=== PATIENT | female | born 1990 | race Two or more races ===

== ENCOUNTER 2017-05-22 23:01 | Emergency (ER) | payer OTHER ==
[~2017-05-22] VITALS: Ht 160 cm; Wt 63.5 kg
[2017-05-22 23:30] VITALS: BP 153/62
[2017-05-23 00:30] LABS: BILIRUBIN,URINE NEGATIVE (NEG); GLUCOSE,URINE 100 mg/dL (NEG); NITRITE,URINE POSITIVE (NEG); PROTEIN,URINE NEGATIVE (NEG-TRACE); UROBILINOGEN,URINE 0.2 mg/dL (0.2 mg/dL)
[2017-05-23 00:39] LABS: BACTERIA,URINE MANY /HPF (0-FEW); RBC,URINE OCC /HPF (0-2); SQUAMOUS EPITHELIAL CELL,UR MOD /LPF; WBC,URINE 20-40 /HPF (0-4)
[2017-05-23] MEDS ORDERED: IBUPROFEN 600 MG TABLET. PO ONE (00:45)
--- NOTE | 2017-05-23 05:25 | ED.ADGEN ---
Past Medical History Past Medical History: Asthma, Other Additional Past Medical Histor: seasonal allergy, chronic low back pain Past Surgical History: Alcohol Use: None Drug Use: None Adult General Chief Complaint Chief Complaint: MULTIPLE COMPLAINTS HPI HPI Patient is a 26 year old female presents with multiple medical complaints. Patient reports bilateral lower back pain,and left sided pelvic pain/burning. Denies urinary frequency urgency and dysuria. No vaginal discharge. No flank pain or history of kidney stones. No ever, chills,nausea vomiting or sweats.No other acute symptoms or complaints. Review of Systems Review of Systems ROS as per HPI. Current Medications Current Medications Current Medications Medications (Trade) Dose Ordered Sig/Autumn Start Time Stop Time Status Last Admin Dose Admin Ibuprofen (Motrin) 600 mg 1X ONCE 05/23/17 00:45 05/23/17 00:46 DC 05/23/17 00:43 600 MG Allergies Allergies Allergies Coded Allergies Type Severity Reaction Last Updated Verified No Known Drug Allergies 07/21/16 No Physical Exam Physical Exam Constitutional: Well developed, well nourished, no acute distress, non-toxic appearance. [] HENT: Normocephalic, atraumatic, bilateral external ears normal, oropharynx moist, no oral exudates, nose normal. [] Eyes: PERRLA, EOMI, conjunctiva normal, no discharge. [] Neck: Normal range of motion, no tenderness, supple, no stridor. [] Cardiovascular:Heart rate regular rhythm, no murmur [] Lungs & Thorax: Bilateral breath sounds clear to auscultation [] Abdomen: Bowel sounds normal, soft, no tenderness, no masses, no pulsatile masses.left lower quadrant/pelvic pain, no tenderness. [] Skin: Warm, dry, no erythema, no rash. [] Back: right lower lumbar paravertebral pain, no CVA tenderness. [] Extremities: No tenderness, no cyanosis, no clubbing, ROM intact, no edema. [] Neurologic: Alert and oriented X 3, normal motor function, normal sensory function, no focal deficits noted. [] Psychologic: Affect normal, judgement normal, mood normal. [] Current Patient Data Vital Signs Vital Signs Date Time Temp Pulse Resp B/P (MAP) Pulse Ox O2 Delivery O2 Flow Rate FiO2 05/22/17 23:30 97.9 102 10 153/62 (92) 97 Room Air 97.9 Lab Values Laboratory Tests Test 05/22/17 22:47 05/23/17 00:01 POC Urine HCG, Qualitative Hcg negative (Negative) Urine Collection Type Unknown Urine Color Yellow Urine Clarity Turbid Urine pH 6.0 Urine Specific [place] 1.025 Urine Protein Negative mg/dL (NEG-TRACE) Urine Glucose (UA) 100 mg/dL (NEG) Urine Ketones (Stick) Negative mg/dL (NEG) Urine Blood Negative (NEG) Urine Nitrite Positive (NEG) Urine Bilirubin Negative (NEG) Urine Urobilinogen Dipstick 0.2 mg/dL (0.2 mg/dL) Urine Leukocyte Esterase Small (NEG) Urine RBC Occ /HPF (0-2) Urine WBC 20-40 /HPF (0-4) Urine Squamous Epithelial Cells Mod /LPF Urine Bacteria Many /HPF (0-FEW) Urine Mucus Marked /LPF EKG EKG [] Radiology/Procedures Radiology/Procedures [] Course & Med Decision Making Course & Med Decision Making Pertinent Labs and Imaging studies reviewed. (See chart for details) [producible mechanical back pain with findings of urinary tract infection. Ibuprofen given. Abx prescriptions provided. Recommend PCP follow up. return precautions reviewed.] Dragon Disclaimer Dragon Disclaimer This electronic medical record was generated, in whole or in part, using a voice recognition dictation system. FADIA BLOCK DO May 23, 2017 05:25
== END 2017-05-23 00:52 | disposition home or self-care (01) ==
LOC: ER 23:01
DX: M54.5 Low back pain (principal); R10.2 Pelvic and perineal pain; G89.29 Other chronic pain; J45.909 Unspecified asthma, uncomplicated
CPT/HCPCS: 81001; 81025; 87086; 87186; 99284

== ENCOUNTER 2017-09-29 13:28 | Emergency (ER) | payer OTHER ==
[2017-09-29] MEDS ORDERED: IV NORMAL SALINE 1000ML BAG 1,000 ML IV SCH (14:13)
[2017-09-29] MEDS ORDERED: ACETAMINOPHEN 325 MG TABLET. PO ONE (14:15)
--- NOTE | 2017-09-29 14:21 | PHYS DOC ---
Past Medical History Past Medical History: Asthma, Other Additional Past Medical Histor: seasonal allergy, chronic low back pain Past Surgical History: Alcohol Use: None Drug Use: None Adult General Chief Complaint Chief Complaint: ABDOMINAL PAIN IN HPI HPI Patient is a 26 year old female who presents with complaint of left-sided flank pain. Patient states that her symptoms started last night. Patient states that the pain feels like burning and sharpness. Patient states that it radiates around towards the left side of her abdomen. Patient denies any previous history of similar symptoms. Patient has had no associated fever, nausea, vomiting, or diarrhea with her symptoms. The patient notes that she has had history of urinary tract infection but has had no recent episodes. Patient currently 19 weeks . Patient has been following with a physician and has had no noted complications with her . Patient has had an ultrasound which confirmed IUP. Patient has not taken any medications to help with her symptoms. Review of Systems Review of Systems Constitutional: Denies fever or chills [] Eyes: Denies change in visual acuity, redness, or eye pain [] HENT: Denies nasal congestion or sore throat [] Respiratory: Denies cough or shortness of breath [] Cardiovascular: Denies chest pain or edema[] GI: Left-sided upper abdominal pain, denies nausea, vomiting, bloody stools or diarrhea [] : Left flank pain, denies dysuria, vaginal bleeding, or abnormal discharge[] Musculoskeletal: Denies back pain or joint pain [] Integument: Denies rash or skin lesions [] Neurologic: Denies headache, focal weakness or sensory changes [] All other systems were reviewed and found to be within normal limits, except as documented in this note. Current Medications Current Medications Current Medications Medications (Trade) Dose Ordered Sig/Autumn Start Time Stop Time Status Last Admin Dose Admin Acetaminophen (Tylenol) 650 mg 1X ONCE 09/29/17 14:15 09/29/17 14:16 DC 09/29/17 14:30 650 MG Sodium Chloride 1,000 ml @ 1,000 mls/hr Q1H 09/29/17 14:13 09/29/17 15:12 DC 09/29/17 14:30 1,000 MLS/HR Allergies Allergies Allergies Coded Allergies Type Severity Reaction Last Updated Verified No Known Drug Allergies 07/21/16 No Physical Exam Physical Exam Constitutional: Alert, afebrile, appears in mild discomfort. [] HENT: Normocephalic, atraumatic, bilateral external ears normal, oropharynx moist, no oral exudates, nose normal. [] Eyes: PERRLA, EOMI, conjunctiva normal, no discharge. [] Neck: Normal range of motion, no tenderness, supple, no stridor. [] Cardiovascular:Heart rate regular rhythm, no murmur [] Lungs & Thorax: Bilateral breath sounds clear to auscultation [] Abdomen: Bowel sounds normal, soft, no tenderness, no masses, no pulsatile masses. [] Skin: Warm, dry, no erythema, no rash. [] Back: No midline tenderness, left CVA tenderness to palpation, no flank ecchymosis. [] Extremities: No tenderness, no cyanosis, no clubbing, ROM intact, no edema. [] Neurologic: Alert and oriented X 3, normal motor function, normal sensory function, no focal deficits noted. [] Current Patient Data Vital Signs Vital Signs Date Time Temp Pulse Resp B/P (MAP) Pulse Ox O2 Delivery O2 Flow Rate FiO2 09/29/17 13:58 98.2 89 18 111/77 (88) 100 Room Air 98.2 Lab Values Laboratory Tests Test 09/29/17 14:00 09/29/17 14:25 Urine Collection Type Unknown Urine Color Yellow Urine Clarity Clear Urine pH 6.5 Urine Specific [place] 1.020 Urine Protein Negative mg/dL (NEG-TRACE) Urine Glucose (UA) Negative mg/dL (NEG) Urine Ketones (Stick) Negative mg/dL (NEG) Urine Blood Large (NEG) Urine Nitrite Negative (NEG) Urine Bilirubin Negative (NEG) Urine Urobilinogen Dipstick 0.2 mg/dL (0.2 mg/dL) Urine Leukocyte Esterase Negative (NEG) Urine RBC Tntc /HPF (0-2) Urine WBC 1-4 /HPF (0-4) Urine Squamous Epithelial Cells Mod /LPF Urine Bacteria 0 /HPF (0-FEW) Urine Mucus Mod /LPF White Blood Count 9.5 x10^3/uL (4.0-11.0) Red Blood Count 4.91 x10^6/uL (3.50-5.40) Hemoglobin 12.1 g/dL (12.0-15.5) Hematocrit 37.6 % (36.0-47.0) Mean Corpuscular Volume 77 fL (79-100) L Mean Corpuscular Hemoglobin 25 pg (25-35) Mean Corpuscular Hemoglobin Concent 32 g/dL (31-37) Red Cell Distribution Width 14.7 % (11.5-14.5) H Platelet Count 143 x10^3/uL (140-400) Neutrophils (%) (Auto) 77 % (31-73) H Lymphocytes (%) (Auto) 14 % (24-48) L Monocytes (%) (Auto) 6 % (0-9) Eosinophils (%) (Auto) 4 % (0-3) H Basophils (%) (Auto) 0 % (0-3) Neutrophils # (Auto) 7.3 x10^3uL (1.8-7.7) Lymphocytes # (Auto) 1.3 x10^3/uL (1.0-4.8) Monocytes # (Auto) 0.6 x10^3/uL (0.0-1.1) Eosinophils # (Auto) 0.3 x10^3/uL (0.0-0.7) Basophils # (Auto) 0.0 x10^3/uL (0.0-0.2) Sodium Level 137 mmol/L (136-145) Potassium Level 4.4 mmol/L (3.5-5.1) Chloride Level 102 mmol/L (98-107) Carbon Dioxide Level 25 mmol/L (21-32) Anion Gap 10 (6-14) Blood Urea Nitrogen 9 mg/dL (7-20) Creatinine 0.3 mg/dL (0.6-1.0) L Estimated GFR (Cockcroft-Gault) 266.9 BUN/Creatinine Ratio 30 (6-20) H Glucose Level 93 mg/dL (70-99) Calcium Level 9.4 mg/dL (8.5-10.1) Total Bilirubin 0.2 mg/dL (0.2-1.0) Aspartate Amino Transferase (AST) 13 U/L (15-37) L Alanine Aminotransferase (ALT) 17 U/L (14-59) Alkaline Phosphatase 67 U/L (46-116) Total Protein 6.5 g/dL (6.4-8.2) Albumin 3.3 g/dL (3.4-5.0) L Albumin/Globulin Ratio 1.0 (1.0-1.7) Lipase 73 U/L (73-393) Laboratory Tests 09/29/17 14:25 Laboratory Tests 09/29/17 14:25 EKG EKG Not performed[] Radiology/Procedures Radiology/Procedures [facility] [address] [place] [address] IMAGING REPORT Signed PATIENT: DOUG MARSHALL ACCOUNT: [id number] : 1990 LOCATION: ER AGE: 26 SEX: F EXAM STATUS: REG ER ORD. PHYSICIAN: SARIAH VERDUZCO MD REASON: left flank pain, hematuria, 19 weeks PROCEDURE: RENAL COMPLETE BILATERAL Renal ultrasound, 09/29/2017: History: Left flank pain, hematuria The right kidney measures 11.2 cm in length while left kidney measures 12.3 cm. The left renal pelvis is mildly prominent. Both kidneys demonstrate increased medullary echogenicity. No renal mass is seen. Limited views of urinary bladder show no abnormality. IMPRESSION: 1. Increased bilateral renal medullary echogenicity. This can be due to a variety of causes including nephrocalcinosis, medullary sponge kidney or hyperparathyroidism. 2. Slight prominence of left renal collecting system. DICTATED and SIGNED BY: JADEN STERLING MD DATE: 09/29/171606 CC: SARIAH VERDUZCO MD; UNKNOWN PCP NAME ~ [] Course & Med Decision Making Course & Med Decision Making Pertinent Labs and Imaging studies reviewed. (See chart for details) heart rate was recorded as 156 bpm. Patient was given oral Tylenol in the emergency department with improvement in symptoms. The patient's UA showed evidence of hematuria with no other findings to support infection. Patient's renal ultrasound also showed mild left hydronephrosis. I suspect that the patient's symptoms could be related to an acute ureteral stone. The patient's vital signs are normal and patient feels much better after being given Tylenol. I spoke with Dr. Cabral of [facility] who stated that it would be appropriate to start patient on oral pain medication and recommend her follow-up with her OB/ [facility] in the next 2 days for reevaluation. Advised patient to return emergency department for any worsening symptoms. Patient voiced understanding and in agreement with treatment plan. Dragon Disclaimer Dragon Disclaimer This electronic medical record was generated, in whole or in part, using a voice recognition dictation system. Departure Departure Impression: Primary Impression: Left flank pain Additional Impression: Hematuria Disposition: HOME, SELF-CARE Condition: IMPROVED Referrals: UNKNOWN PCP NAME (PCP) Patient Instructions: Flank Pain, Hematuria, Adult Additional Instructions: Your emergency department workup today showed findings that were concerning for a possible left ureteral stone. It is recommended that she follow-up with your [facility] in the next 2 days for reevaluation. You may also require referral to a urologist for further care if your doctor deems necessary. Return to the emergency department for any worsening symptoms. Scripts Hydrocodone/Apap 5-325 (NORCO 5-325 TABLET) 1 Each Tablet 1-2 TAB PO Q4-6HRS Y for PAIN, #15 TAB Prov: SARIAH VERDUZCO MD 09/29/17 Problem Qualifiers Additional Impression: Hematuria Hematuria type: unspecified type Qualified Codes: R31.9 - Hematuria, unspecified SARIAH VERDUZCO MD Sep 29, 2017 14:21
[2017-09-29 14:39] LABS: BASO % 0 % (0-3); EOS % 4 % (0-3); HEMATOCRIT 37.6 % (36.0-47.0); HEMOGLOBIN 12.1 g/dL (12.0-15.5); LYMPH # 1.3 x10^3/uL (1.0-4.8); LYMPH % 14 % (24-48); MEAN CORPUSCULAR HEMOGLOBIN 25 pg (25-35); MEAN CORPUSCULAR HGB CONC 32 g/dL (31-37); MEAN CORPUSCULAR VOLUME 77 fL (79-100); MONO % 6 % (0-9); NEUT % 77 % (31-73); PLATELET COUNT 143 x10^3/uL (140-400); RED BLOOD COUNT 4.91 x10^6/uL (3.50-5.40); RED CELL DISTRIBUTION WIDTH 14.7 % (11.5-14.5); WHITE BLOOD COUNT 9.5 x10^3/uL (4.0-11.0)
[2017-09-29 14:52] LABS: CALCIUM 9.4 mg/dL (8.5-10.1); CREATININE 0.3 mg/dL (0.6-1.0); GFR 266.9; POTASSIUM 4.4 mmol/L (3.5-5.1)
[2017-09-29 14:57] LABS: ALBUMIN 3.3 g/dL (3.4-5.0); TOTAL BILIRUBIN 0.2 mg/dL (0.2-1.0); TOTAL PROTEIN 6.5 g/dL (6.4-8.2)
[2017-09-29 15:25] LABS: BILIRUBIN,URINE NEGATIVE (NEG); GLUCOSE,URINE NEGATIVE (NEG); NITRITE,URINE NEGATIVE (NEG); PH,URINE 6.5; PROTEIN,URINE NEGATIVE (NEG-TRACE); UROBILINOGEN,URINE 0.2 mg/dL (0.2 mg/dL)
[2017-09-29 15:33] LABS: BACTERIA,URINE 0 /HPF (0-FEW); RBC,URINE TNTC /HPF (0-2); SQUAMOUS EPITHELIAL CELL,UR MOD /LPF
[2017-09-29 15:50] VITALS: BP 116/68
--- NOTE | 2017-09-29 16:17 | RAD ---
Renal ultrasound, 09/29/2017: History: Left flank pain, hematuria The right kidney measures 11.2 cm in length while left kidney measures 12.3 cm. The left renal pelvis is mildly prominent. Both kidneys demonstrate increased medullary echogenicity. No renal mass is seen. Limited views of urinary bladder show no abnormality. IMPRESSION: 1. Increased bilateral renal medullary echogenicity. This can be due to a variety of causes including nephrocalcinosis, medullary sponge kidney or hyperparathyroidism. 2. Slight prominence of left renal collecting system.
[2017-09-29] MEDS ORDERED: HYDR-971 PO (16:37)
== END 2017-09-29 16:50 | disposition home or self-care (01) ==
LOC: ER 13:28
DX: O26.892 Other specified pregnancy related conditions, second trimester (principal); R10.12 Left upper quadrant pain; R31.9 Hematuria, unspecified; O99.512 Diseases of the respiratory system complicating pregnancy, second trimester; J45.909 Unspecified asthma, uncomplicated; G89.29 Other chronic pain; Z87.440 Personal history of urinary (tract) infections; Z3A.19 19 weeks gestation of pregnancy
CPT/HCPCS: 36415; 76770; 80053; 81001; 83690; 85025; 96360; 99285; J7030

== ENCOUNTER 2020-02-20 15:36 | Emergency (ER) | payer SELFPAY ==
[~2020-02-20] VITALS: Ht 160 cm; Wt 62.0 kg
[~2020-02-20 15:36] MED LIST: HYDR-3164 PO
[2020-02-20 16:41] LABS: BASO % 0 % (0-3); EOS # 0.4 x10^3/uL (0.0-0.7); EOS % 5 % (0-3); HEMATOCRIT 40.3 % (36.0-47.0); HEMOGLOBIN 13.2 g/dL (12.0-15.5); LYMPH # 1.7 x10^3/uL (1.0-4.8); LYMPH % 20 % (24-48); MEAN CORPUSCULAR HEMOGLOBIN 25 pg (25-35); MEAN CORPUSCULAR HGB CONC 33 g/dL (31-37); MEAN CORPUSCULAR VOLUME 78 fL (79-100); MONO # 0.4 x10^3/uL (0.0-1.1); MONO % 5 % (0-9); NEUT # 5.7 x10^3/uL (1.8-7.7); NEUT % 69 % (31-73); PLATELET COUNT 178 x10^3/uL (140-400); RED BLOOD COUNT 5.18 x10^6/uL (3.50-5.40); RED CELL DISTRIBUTION WIDTH 14.6 % (11.5-14.5); WHITE BLOOD COUNT 8.3 x10^3/uL (4.0-11.0)
[2020-02-20 16:54] LABS: CALCIUM 9.5 mg/dL (8.5-10.1); CREATININE 0.5 mg/dL (0.6-1.0); GFR 144.9; POTASSIUM 3.9 mmol/L (3.5-5.1)
[2020-02-20 17:00] LABS: ALBUMIN 3.9 g/dL (3.4-5.0); ALBUMIN/GLOBULIN RATIO 1.1 (1.0-1.7); MAGNESIUM 1.6 mg/dL (1.8-2.4); TOTAL BILIRUBIN 0.1 mg/dL (0.2-1.0); TOTAL PROTEIN 7.5 g/dL (6.4-8.2)
[2020-02-20] MEDS ORDERED: IV NORMAL SALINE 1000ML BAG 1,000 ML IV ONE (17:00)
[2020-02-20] MEDS ORDERED: METOPROLOL TARTRATE 5 MG/5 ML VIAL. IVP ONE (17:00)
[2020-02-20 17:01] LABS: BILIRUBIN,URINE NEGATIVE (NEG); CLARITY,URINE CLEAR; COLOR,URINE YELLOW; NITRITE,URINE NEGATIVE (NEG); PROTEIN,URINE NEGATIVE (NEG-TRACE); UROBILINOGEN,URINE 0.2 mg/dL (0.2 mg/dL)
[2020-02-20 17:08] LABS: BARBITURATES NEG (NEG); BENZODIAZEPINES NEG (NEG); CANNABINOIDS POS (NEG); COCAINE NEG (NEG); METHADONE NEG (NEG); OPIATES NEG (NEG); PHENCYCLIDINE NEG (NEG)
[2020-02-20 17:09] LABS: AMPHETAMINE/METHAMPHETAMINE POS (NEG)
[2020-02-20 17:15] LABS: BACTERIA,URINE 0 /HPF (0-FEW); RBC,URINE OCC /HPF (0-2); SQUAMOUS EPITHELIAL CELL,UR MOD /LPF; WBC,URINE OCC /HPF (0-4)
[2020-02-20 17:22] VITALS: BP 122/62
--- NOTE | 2020-02-20 17:47 | PHYS DOC ---
Past Medical History Past Medical History: Asthma, Other Additional Past Medical Histor: seasonal allergy, chronic low back pain Past Surgical History: Smoking Status: Former Smoker Alcohol Use: None Drug Use: None General Adult EDM: Chief Complaint: LOWER BACK PAIN OR INJURY HPI: HPI: Patient is a 29 year old female who presents to the emergency department with complaints of right-sided low back pain that radiates into her buttock and increases with straight leg lift of the right leg. Patient states that she was diagnosed with a kidney infection about a month ago but denies any dysuria, hematuria, or increased urinary frequency. On arrival patient was noted to have an elevated heart rate. She states she just smokes marijuana and drank a Monster before she came into the emergency department. Patient denies any illicit drug use other than marijuana. She denies any chest pain, palpitations, shortness of breath, wheezing, cough, headache, numbness, tingling, weakness, abdominal pain, nausea, vomiting, or diarrhea. She currently rates her pain in her low back and 9 out of 10 on the pain scale, she denies any alleviating factors. She states that the pain increases to a 10 out of 10 with movement. Review of Systems: Review of Systems: Complete review of systems was negative unless otherwise documented in the HPI. Heart Score: Risk Factors: Risk Factors: DM, Current or recent (<one month) smoker, HTN, HLP, family history of CAD, obesity. Risk Scores: Score 0 - 3: 2.5% MACE over next 6 weeks - Discharge Home Score 4 - 6: 20.3% MACE over next 6 weeks - Admit for Clinical Observation Score 7 - 10: 72.7% MACE over next 6 weeks - Early Invasive Strategies Current Medications: Current Medications Medications (Trade) Dose Ordered Sig/Autumn Start Time Stop Time Status Last Admin Dose Admin Metoprolol Tartrate (Lopressor Vial) 5 mg 1X ONCE 02/20/20 17:00 02/20/20 17:01 DC 02/20/20 16:49 5 MG Sodium Chloride 1,000 ml @ 1,000 mls/hr 1X ONCE 02/20/20 17:00 02/20/20 17:59 02/20/20 16:50 1,000 MLS/HR Allergies: Allergies: Allergies Coded Allergies Type Severity Reaction Last Updated Verified No Known Drug Allergies 07/21/16 No Physical Exam: PE: Constitutional: Well developed, well nourished, no acute distress, non-toxic appearance. [] HENT: Normocephalic, atraumatic, bilateral external ears normal, oropharynx moist, no oral exudates, nose normal. [] Eyes: PERRLA, EOMI, conjunctiva normal, no discharge. [] Neck: Normal range of motion, no tenderness, supple, no stridor. [] Cardiovascular:Heart rate regular tachycardic rhythm, no murmur [] Lungs & Thorax: Bilateral breath sounds clear to auscultation, Respirations even and unlabored, no retractions, no respiratory distress [] Skin: Warm, dry, no erythema, no rash. [] Back: No bony tenderness, no CVA tenderness; right lumbar paraspinal tenderness to palpation increased pain with right straight leg lift, consistent with low back pain with sciatica [] Extremities: No cyanosis, ROM intact, no edema. [] Neurologic: Alert and oriented X 3, no focal deficits noted. [] Psychologic: Affect normal, judgement normal, mood normal. [] Current Patient Data: Labs: Laboratory Tests Test 02/20/20 16:34 02/20/20 16:44 White Blood Count 8.3 x10^3/uL (4.0-11.0) Red Blood Count 5.18 x10^6/uL (3.50-5.40) Hemoglobin 13.2 g/dL (12.0-15.5) Hematocrit 40.3 % (36.0-47.0) Mean Corpuscular Volume 78 fL (79-100) L Mean Corpuscular Hemoglobin 25 pg (25-35) Mean Corpuscular Hemoglobin Concent 33 g/dL (31-37) Red Cell Distribution Width 14.6 % (11.5-14.5) H Platelet Count 178 x10^3/uL (140-400) Neutrophils (%) (Auto) 69 % (31-73) Lymphocytes (%) (Auto) 20 % (24-48) L Monocytes (%) (Auto) 5 % (0-9) Eosinophils (%) (Auto) 5 % (0-3) H Basophils (%) (Auto) 0 % (0-3) Neutrophils # (Auto) 5.7 x10^3/uL (1.8-7.7) Lymphocytes # (Auto) 1.7 x10^3/uL (1.0-4.8) Monocytes # (Auto) 0.4 x10^3/uL (0.0-1.1) Eosinophils # (Auto) 0.4 x10^3/uL (0.0-0.7) Basophils # (Auto) 0.0 x10^3/uL (0.0-0.2) D-Dimer (Regla) < 0.27 ug/mlFEU Sodium Level 141 mmol/L (136-145) Potassium Level 3.9 mmol/L (3.5-5.1) Chloride Level 105 mmol/L (98-107) Carbon Dioxide Level 26 mmol/L (21-32) Anion Gap 10 (6-14) Blood Urea Nitrogen 14 mg/dL (7-20) Creatinine 0.5 mg/dL (0.6-1.0) L Estimated GFR (Cockcroft-Gault) 144.9 BUN/Creatinine Ratio 28 (6-20) H Glucose Level 113 mg/dL (70-99) H Calcium Level 9.5 mg/dL (8.5-10.1) Magnesium Level 1.6 mg/dL (1.8-2.4) L Total Bilirubin 0.1 mg/dL (0.2-1.0) L Aspartate Amino Transferase (AST) 11 U/L (15-37) L Alanine Aminotransferase (ALT) 19 U/L (14-59) Alkaline Phosphatase 65 U/L (46-116) Troponin I Quantitative < 0.017 ng/mL (0.000-0.055) Total Protein 7.5 g/dL (6.4-8.2) Albumin 3.9 g/dL (3.4-5.0) Albumin/Globulin Ratio 1.1 (1.0-1.7) Urine Collection Type Unknown Urine Color Yellow Urine Clarity Clear Urine pH 6.0 (<5.0-8.0) Urine Specific [place] 1.025 (1.000-1.030) Urine Protein Negative mg/dL (NEG-TRACE) Urine Glucose (UA) Negative mg/dL (NEG) Urine Ketones (Stick) Negative mg/dL (NEG) Urine Blood Negative (NEG) Urine Nitrite Negative (NEG) Urine Bilirubin Negative (NEG) Urine Urobilinogen Dipstick 0.2 mg/dL (0.2 mg/dL) Urine Leukocyte Esterase Negative (NEG) Urine RBC Occ /HPF (0-2) Urine WBC Occ /HPF (0-4) Urine Squamous Epithelial Cells Mod /LPF Urine Bacteria 0 /HPF (0-FEW) Urine Mucus Marked /LPF Urine Opiates Screen Neg (NEG) Urine Methadone Screen Neg (NEG) Urine Barbiturates Neg (NEG) Urine Phencyclidine Screen Neg (NEG) Urine Amphetamine/Methamphetamine Pos (NEG) Urine Benzodiazepines Screen Neg (NEG) Urine Cocaine Screen Neg (NEG) Urine Cannabinoids Screen Pos (NEG) Urine Ethyl Alcohol Neg (NEG) Laboratory Tests 02/20/20 16:34 Laboratory Tests 02/20/20 16:34 Vital Signs: Vital Signs Date Time Temp Pulse Resp B/P (MAP) Pulse Ox O2 Delivery O2 Flow Rate FiO2 02/20/20 17:22 112 16 122/62 (82) 97 Room Air 02/20/20 15:45 98.4 98.4 EKG: EK -sinus tachycardia no ST elevation, no STEMI, rate 151, read by Dr. Milligan [] Radiology/Procedures: Radiology/Procedures: [] Course & Med Decision Making: Course & Med Decision Making Pertinent Labs and Imaging studies reviewed. (See chart for details) Patient is a 29-year-old female who presented to the emergency room for evaluation of back pain, however on arrival patient was found to have a rapid regular heart rate in the 150s to low 160s. CBC revealed no acute findings, d-dimer was within normal limits, CMP revealed a BUN creatinine ratio 28, glucose of 113, magnesium of 1.6, was otherwise unremarkable, troponin was negative at less than 0.017; patient's urine was not concerning for urinary tract infection, urine drug screen was positive for amphetamines and cannabinoids. The patient was given 1 L of normal saline, and 5 mg of metoprolol IV push, her heart rate decreased into the upper 90s, to low 100s after these medications. Twelve-lead EKG was negative for any ST elevation or abnormalities. Prescriptions were written for Flexeril and naproxen. The patient was encouraged to stop using methamphetamine and also discouraged from drinking monster energy drinks in the future.. She was also instructed to follow-up with her primary care doctor for further evaluation of back pain, return to the ER symptoms worsen or she develops a fever. Patient verbalized an understanding of home care, medications, follow-up, and return to ED instructions and was in agreement with the plan of care. [] Hakan Disclaimer: Hakan Disclaimer: This electronic medical record was generated, in whole or in part, using a voice recognition dictation system. Departure Departure Impression: Primary Impression: Pain in paraspinal region Additional Impression: Amphetamine abuse Disposition: HOME, SELF-CARE Condition: STABLE Referrals: NO PCP (PCP) Patient Instructions: Amphetamine Abuse-Brief, Back Pain, Adult, [id number] Additional Instructions: Fill the prescription(s) and use as directed. Apply heat or ice for to sore areas as needed for comfort. Activity as tolerated. Follow up with your primary care doctor this week if symptoms persist, return to the ER if symptoms worsen. Scripts Naproxen (NAPROXEN) 500 Mg Tablet 1 TAB PO BID PRN for PAIN for 10 Days, #20 TAB 0 Refills Prov: MERLYN MACDONALD APRN 02/20/20 Cyclobenzaprine Hcl (CYCLOBENZAPRINE HCL) 10 Mg Tablet 1 TAB PO TID PRN for PAIN for 10 Days, #30 TAB 0 Refills Prov: MERLYN MACDONALD APRN 02/20/20 MERLYN MACDONALD APRN Feb 20, 2020 17:47
[2020-02-20] MEDS ORDERED: NAPR-514 PO (17:54)
[2020-02-20] MEDS ORDERED: CYCL10TA2 PO (17:54)
--- NOTE | 2020-02-21 06:15 | EKG ---
[facility] [address] [place] [address] Test Date: 2020-02-20 Test Time: 16:26:09 Pat Name: DOUG CRAIG Department: Room: Gender: F [employer]: : 1990 Requested By: MERLYN MACDONALD Order Number: [id number] Reading MD: Jose Campbell Measurements Intervals [place] Rate: 151 P: -8 RI: 100 QRS: 59 QRSD: 84 T: 31 QT: 258 QTc: 410 Interpretive Statements SINUS TACHYCARDIA Electronically Signed On 02-21-2020 10:31:44 CDT by Jose Campbell
== END 2020-02-20 18:02 | disposition home or self-care (01) ==
LOC: ER 15:36
DX: M54.41 Lumbago with sciatica, right side (principal); F15.10 Other stimulant abuse, uncomplicated; J45.909 Unspecified asthma, uncomplicated; N15.9 Renal tubulo-interstitial disease, unspecified; F12.90 Cannabis use, unspecified, uncomplicated; Z87.891 Personal history of nicotine dependence; Z98.890 Other specified postprocedural states
CPT/HCPCS: 36415; 80053; 80307; 81001; 83735; 84484; 85025; 85379; 93005; 96374; 99284; J3490; J7030